=== PATIENT | male | born 1985 | race Two or more races ===

== ENCOUNTER 2020-03-28 19:33 | Emergency (ER) | payer OTHER, SELFPAY ==
[2020-03-28 20:24] VITALS: BP 109/55; PULSE 60; RESP 18; TEMP 36.2; O2SAT 98; BMI 26.1
[2020-03-28 20:42] VITALS: BP 116/73; PULSE 56; RESP 17; TEMP 37; O2SAT 98
[2020-03-28 20:44] LABS: Glucose Urine UA NEG (NEG); Leukocyte Esterase Urine NEG (NEG); Nitrite Urine NEG (NEG); Specific Gravity - Urine >= 1.030 (1.005-1.025); Urine Blood NEG (NEG); Urine Ketones NEG (NEG); Urine Protein NEG (NEG-TRACE)
[2020-03-28 20:48] LABS: Color Urine YELLOW
[2020-03-28 20:49] LABS: Appearance Urine CLEAR
--- NOTE | 2020-03-28 21:31 | ED.MALEGU ---
HPI - Male Genitourinary General Chief complaint: Urogenital-Male Stated complaint: ?STD Time Seen by Provider: 03/28/20 21:27 Source: patient Mode of arrival: ambulatory Limitations: no limitations History of Present Illness HPI Narrative: patient had unprotected sex with his partner 1 week ago who later told him that she has chlamydia patient denied any penile discharge notice slight dysuria since yesterday. Patient denied any history of STDs in the past Related Data Allergies Allergy/AdvReac Type Severity Reaction Status Date / Time No Known Allergies Allergy Unverified 01/21/20 17:40 Review of Systems Review of Systems: Yes all other systems are reviewed and are negative [facility] Past Medical History Medical History Healthy adult Social History Social History Smoked in Last 30 Days: No Use of substances other than those prescribed or required for medical reasons: No Advance Directives: No Physical Exam Vital Signs: Vital Signs: Last Vital Signs Temp 98.6 F 03/28/20 20:42 Pulse 56 03/28/20 20:42 Resp 17 03/28/20 20:42 BP 116/73 03/28/20 20:42 Pulse Ox 98 03/28/20 20:42 Body Mass Index 26.1 Appearance: Alert. Oriented X3. No acute distress. Eyes: Pupils equal, round and reactive to light. ENT: Pharynx normal. Neck: Normal inspection. Neck supple. CVS: Normal heart rate and rhythm. Pulses normal. Respiratory: No respiratory distress. Breath sounds normal. Abdomen: Soft and nontender. no CVA tenderness Skin: Skin warm and dry. Normal skin color. Normal skin turgor. Extremities: No lower extremity edema. Good range of movement Neuro: Oriented X 3. No motor deficit. No sensory deficit. MDM - Male Genitourinary MDM Narrative Medical decision making narrative: patient exposed to chlamydia UA is negative result for GC and chlamydia pending received Rocephin and Zithromax educated about STDs and precaution will discharge him home Lab Data Labs: Lab Results 03/28/20 Range/Units 20:32 Urine Color YELLOW Urine Appearance CLEAR Urine pH 6.0 (5.0-8.0) Ur Specific [place] >= 1.030 H (1.005-1.025) Urine Protein NEG (NEG-TRACE) MG/DL Urine Glucose (UA) NEG (NEG) MG/DL Urine Ketones NEG (NEG) MG/DL Urine Blood NEG (NEG) Urine Nitrite NEG (NEG) Ur Leukocyte Esterase NEG (NEG) Discharge Plan Discharge Clinical Impression: Exposure to sexually transmitted disease (STD) Patient Disposition: Home, Self-Care Instructions: Sexually Transmitted Diseases in Adolescents (ED) Additional Instructions: use protection when having sex. You have been treated for chlamydia gonorrhea in the ER let your partner know about it , your labs are pending for final diagnosis Interventions: ED Discharge Assessment Last Done: 03/28/20 22:11 Discharge Date/Time: 03/28/20 22:11
[2020-03-28] MEDS: Azithromycin 500 MG TABLET 1000 MG PO (22:05)
[2020-03-28] MEDS: cefTRIAXone sodium 250 MG, Lidocaine HCl 1 % MPF 0.9 ML IM (22:06)
[2020-03-29 04:24] LABS: CT PCR NOT DETECTED (Not Detect.); NG PCR NOT DETECTED (Not Detect.)
== END 2020-03-28 22:11 | disposition home or self-care (01) ==
PROVIDERS: Emergency Provider Internal Medicine
DX: Z20.2 Contact with and (suspected) exposure to infections with a predominantly sexual mode of transmission (principal)
CPT/HCPCS: 81003; 87491; 87591; 96372; 99284; J0696

== ENCOUNTER 2022-11-09 12:40 | Emergency (ER) | payer SELFPAY ==
--- NOTE | 2022-11-09 12:49 | ED.GENADULT ---
HPI - General Adult General Chief complaint: Skin/Abscess/Foreign Body Stated complaint: R arm injury Time Seen by Provider: 11/09/22 13:05 Source: patient Mode of arrival: ambulatory Limitations: no limitations History of Present Illness HPI narrative: Patient is a 37 year old male with no past medical history. Patient reports getting a laceration on the posterior aspect of his right arm on Father's day and it is still not healing and is hurting. Patient reports being up to date on tetanus shot. Patient denies taking antibiotics for this. Patient is not a diabetic. Denies fevers, chills, numbness, tingling, chest pain, SOB, vision changes, headache, nausea, and vomiting. Related Data Previous Rx's Medication Instructions Recorded cephalexin 500 mg tablet 500 mg PO Q6H 10 days #40 tabs 11/09/22 Allergies Allergy/AdvReac Type Severity Reaction Status Date / Time No Known Allergies Allergy Unverified 01/21/20 17:40 Review of Systems Review of Systems: Constitutional : No Fever, No Chills, Cardiovascular : No Chest Pain, No SOB Respiratory : No Dyspnea Gastrointestinal : No abdominal pain Musculoskeletal : No Joint Swelling Skin : No rash, positive skin laceration Neuro : No Weakness, No Numbness Psych : No SI/HI Yes all other systems are reviewed and are negative [facility] Past Medical History Attestation statement: The following information was validated with the patient. Source: old records reviewed and nursing notes reviewed Medical History Healthy adult Social History Social History Advance Directives: No Advance Directives Information Provided: No Physical Exam ED Vital Signs: Vital Signs - 24 hr 11/09/22 12:50 Temperature 97.0 F Pulse Rate 62 Respiratory Rate 20 Blood Pressure 127/53 L Pulse Oximetry 97 Oxygen Delivery Method Room Air BMI result Body Mass Index 26.7 VSS Appearance: Alert.? Oriented X3.? No acute distress.? Head: Normocephalic, atraumatic, no step-offs or deformities Eyes: Pupils equal, round and reactive to light.? Neck: Normal inspection.? Neck supple.? CVS: Normal heart rate and rhythm.? Pulses normal.? Respiratory: No respiratory distress.? Breath sounds normal.? Abdomen: Soft and nontender.? Skin: Skin warm and dry.? Normal skin color.? Normal skin turgor.?+laceration to right bicep Extremities: No lower extremity edema.? No calf ttp. 5/5 strength to bilateral upper and lower extremities Neuro: Oriented X 3.? No motor deficit.? No sensory deficit. CN 2-12 intact Course Course Course Narrative: This is an RME: Additional HPI, ROS, PE not included below will be deferred to primary provider. Patient is a 37 year old male with no past medical history presenting with right arm pain following a non healing cut from plastic he got on Father's Day from trying to fix his car. Plan: discharge with antibiotics Reevaluation(s) Reevaluation #1: Patient to be discharged home with keflex, advised to return if new or worsening symptoms. Patient verbally demonstarted understanding. Time: 13:01 Medical Decision Making Medical Decision Making MDM Narrative: Patient presents with poor healing laceration to right bicep. Physical exam: please refer to pictures in PE Differential likely poor wound healing, simple laceration, no signs of poor wound healing. No loss of sensation, no NV compromise, no compromised limb, no osteomyelitis. Plan: discharge home with antibiotics Differential Diagnosis Differential Diagnoses: The differential diagnosis associated with the presentation includes Differential likely poor wound healing, simple laceration, no signs of poor wound healing. No loss of sensation, no NV compromise, no compromised limb, no osteomyelitis. Admission/Observation Consideration of admission/observation: Escalation of care including admission/observation considered not indicated Prescription Management I considered prescription management with: Antibiotic Core Measures AMI core measures followed: Yes Measure exclusions: not indicated Discharge Plan Discharge Clinical Impression: Delayed wound healing Patient Disposition: Home, Self-Care Additional Instructions: Take your medications as prescribed. If you were prescribed antibiotics today, it is important that you take your medication to their entirety, do not skip any doses, do not finish them early. Follow-up with your primary care provider this week. Return to the emergency department with new or worsening symptoms. In case of emergency call 911 Prescriptions: New cephalexin 500 mg tablet 500 mg PO Q6H 10 Days Qty: 40 0RF Referrals: Physician,Aknita J [Primary Care Provider] - 2 days
[2022-11-09 12:50] VITALS: BP 127/53; PULSE 62; RESP 20; TEMP 36.1; O2SAT 97; BMI 26.7
== END 2022-11-09 13:09 | disposition home or self-care (01) ==
PROVIDERS: Emergency Provider Emergency Medicine Emergency Medical Services
DX: M79.601 Pain in right arm (principal); Z48.00 Encounter for change or removal of nonsurgical wound dressing
CPT/HCPCS: 99282; 99283

== ENCOUNTER 2023-08-28 15:39 | Emergency (ER) | payer MEDICAID, SELFPAY ==
--- NOTE | 2023-08-28 15:44 | ED_ITS ---
HPI - General Adult General Chief complaint: Allergic Reaction Stated complaint: allergies Time Seen by Provider: 08/28/23 17:57 Source: patient Mode of arrival: ambulatory Limitations: no limitations History of Present Illness HPI narrative: Patient is a 38 year old assigned male at with a history of seasonal allergies presenting to the emergency department today with bilateral lower eye lid swelling and a rash to the torso. Patient states that over the last 2 days he has noticed bilateral lower eye lid swelling and has a rash on his torso that is dry and itchy. Patient states that he has been taking claritin but not consistently. Patient denies any dizziness, lightheadedness, abdominal pain, nausea, vomiting, fever, chills, blurry vision, double vision, loss of vision, chest pain, difficulty breathing, shortness of breath, back pain, night sweats, pain with urination, increased urinary frequency, increased urinary urgency, blood in his urine or stool, syncope or a near syncopal episode, recent trauma or falls, bowel incontinence, bladder incontinence, bowel retention, bladder retention, or any other complaints at this time. Onset (ago): day(s) (2) Severity: mild Severity scale (1-10): 2 Relieving factors: none Exacerbating factors: none Associated symptoms: rash Treatments prior to arrival: other (intermittent Claritin use) Related Data Previous Rx's ?Medication ?Instructions ?Recorded cephalexin 500 mg tablet 500 mg PO Q6H 10 days #40 tabs 11/09/22 loratadine 10 mg tablet 10 mg PO DAILY #30 tabs 08/28/23 prednisone 20 mg tablet 20 mg PO DAILY 7 days #7 tabs 08/28/23 Allergies Allergy/AdvReac Type Severity Reaction Status Date / Time No Known Allergies Allergy Verified 08/28/23 15:47 Review of Systems Constitutional: Constitutional: Reports no additional constitutional complaints, Denies chills, Denies fever(s) and Denies night sweats Eyes: Eyes: Reports no additional eye complaints, Denies blurry vision, Denies change in vision, Denies diplopia, Denies eye discharge, Denies loss of vision and Denies eye pain Comments: bilateral lower lid swelling ENT: Denies dizziness Cardiovascular: Cardiovascular: Reports no additional cardiovascular complaints, Denies chest pain, Denies lightheadedness, Denies Loss of C onsciousness and Denies dyspnea Respiratory: Respiratory: Reports no additional respiratory complaints and Denies dyspnea Gastrointestinal: Gastrointestinal: Reports no additional gastrointestinal complaints, Denies abdominal pain, Denies melena, Denies hematochezia, Denies change in bowel habits and Denies change in stool character Genitourinary: Genitourinary: Reports no additional male genitourinary complaints, Denies hematuria, Denies oliguria, Denies difficulty urinating, Denies dysuria, Denies urinary frequency, Denies urinary hesitancy, Denies urinary incontinence and Denies urinary urgency Musculoskeletal: Musculoskeletal: Reports no additional musculoskeletal complaints, Denies numbness and Denies tingling Integumentary/Breasts: Skin/Breast: Reports rash Neurologic: Denies dizziness, Denies loss of vision, Denies numbness and Denies tingling Psychiatric: Psychiatric: Reports no additional psychiatric complaints Endocrine: Endocrine: Reports no additional endocrine complaints Hematologic/Lymphatic: Hematologic/Lymphatic: Reports no additional hematologic/lymphatic complaints Allergic/Immunologic: Allergic/Immunologic: Reports no additional allergic/immunologic complaints PMFSH Past Medical History Attestation statement: The following information was validated with the patient. Source: old records reviewed and nursing notes reviewed Medical History Healthy adult Social History Social History Advance Directives: No Advance Directives Information Provided: No Do you have a plan to hurt others: No Plan Physical Exam ED Vital Signs: Vital Signs - 24 hr 08/28/23 15:46 08/28/23 18:01 08/28/23 18:12 Temperature 98.9 F 98.5 F 98.5 F Pulse Rate 94 88 88 Respiratory Rate 20 20 20 Blood Pressure 141/88 H 140/86 H 140/86 H Pulse Oximetry 99 99 99 Oxygen Delivery Method Room Air Room Air Room Air BMI result Body Mass Index 27.9 Const General: cooperative, no acute distress, alert and awake Nutritional Appearance: well nourished Orientation/consciousness: patient oriented x3 Limitations: no limitations HENMT Head: Yes normal to inspection and Yes atraumatic Ears: hearing grossly normal bilaterally and external ears normal General nose exam: Normal external nose present, no nasal discharge noted and no epistaxis Face and sinus: Yes normal facial exam, No abrasion and No laceration Mouth: Normal oral and palatal mucosa present, no drooling and no muffled voice Eyes Eyelids: Yes other (bilateral lower eyelid swelling - consistent with seasonal allergies) Conjunctivae: conjunctivae normal Pupils: Equal, round and reactive pupils present EOM: EOMs intact bilaterally Neck Neck: Yes normal visual inspection, Yes full ROM and Yes no lymphadenopathy Chest Other: area of dry skin present to the torso - consistent with eczema Resp Effort & Inspection: normal respiratory effort and able to speak in complete sentences GI Inspection: Yes normal to inspection Neuro General: patient oriented x3 and moves all extremities Cranial nerves: Yes Equal, round and reactive pupils present Cognition (Neuro): normal cognition Motor exam (neuro): 5/5 motor strength present throughout Sensory Exam: Normal double simultaneous stimulation for sensation Coordination: [id number] test normal Extrem General: Yes normal to inspection, Yes full ROM and Yes capillary refill normal Psych Appearance: grossly normal Mental Status: mental status grossly normal Affect: normal affect Attitude: cooperative Thought process: Normal thought process present Thought content: Normal thought content present Insight: Good insight present (Psych) Course Course Course Narrative: This is an RME: Additional HPI, ROS, PE not included below will be deferred to primary provider. 38 yo m presents with itching rash on right torso X 3 days. Denies cough, fevers, cp, sob, nausea, vomiting, diarrhea. Denies recent sickness. Medical Decision Making Medical Decision Making [facility] Narrative: Patient is a 38 year old assigned male at with a history of seasonal allergies presenting to the emergency department today with bilateral lower eye lid swelling and a rash to his torso. Patient's physical exam was as noted in the physical exam portion of this note. Patient's COVID-19, influenza, and RSV tests were negative. I explained my physical exam findings as well as all test results to the patient. I answered all questions asked by the patient. I stressed the importance of the patient taking his medication as prescribed. I stressed the importance of the patient following up with his primary care provider. I stressed the importance of the patient returning to the emergency de partment immediately if his symptoms were to worsen or if he were to develop any dizziness, shortness of breath, difficulty breathing, chest pain, blurry vision, loss of vision, nausea, vomiting, abdominal pain, fever, chills, back pain, or any other complaints. Patient verbalized agreement and understanding with this treatment plan and discharge. Differential Diagnosis Differential Diagnoses: The differential diagnosis associated with the presentation includes Seasonal allergies Eczema Allergy triad Admission/Observation Consideration of admission/observation: Escalation of care including admission/observation considered Patient would have been admitted to the hospital had his work up had any findings where hospital admission was appropriate and his clinical presentation warranted hospital admission. Lab Data MDM Lab Attestation statement: I reviewed the patient's lab results. My interpretation of these studies and their corresponding values is that they are grossly normal. Labs: Lab Results 08/28/23 Range/Units 16:06 Influenza Type A (PCR) NEGATIVE (Negative) Influenza Type B (PCR) NEGATIVE (Negative) RSV RNA Qual (PCR) NEGATIVE (Negative) SARS-CoV-2 RNA (RT-PCR) NEGATIVE (Negative) Discharge Plan Discharge Clinical Impression: Eczema, Seasonal allergies Patient Disposition: Home, Self-Care Instructions: Eczema (ED), Allergies (ED) Additional Instructions: Follow up with a primary care provider. Return to the emergency department immediately if your symptoms worsen or if you develop any dizziness, shortness of breath, difficulty breathing, chest pain, blurry vision, loss of vision, nausea, vomiting, abdominal pain, fever, chills, back pain, or any other complaints. Prescriptions: New loratadine 10 mg tablet 10 mg PO DAILY Qty: 30 0RF prednisone 20 mg tablet 20 mg PO DAILY 7 Days Qty: 7 0RF No Action cephalexin 500 mg tablet 500 mg PO Q6H 10 Days Qty: 40 0RF Referrals: [facility] [Provider Group] (Call to establish and follow up with a primary care provider.) [facility] Primary CareJennifer [Provider Group] [facility] Primary [facility] [Provider Group] Stand Alone Forms: Work/School Release Interventions: ED Discharge Assessment Last Done: 08/28/23 18:12 Discharge Date/Time: 08/28/23 18:13 Print Language: Norwegian
[2023-08-28 15:46] VITALS: BP 141/88; PULSE 94; RESP 20; TEMP 37.2; O2SAT 99; BMI 27.9
[2023-08-28 16:52] LABS: Influenza A PCR NEGATIVE (Negative); Influenza B PCR NEGATIVE (Negative); Resp Syncy Virus RNA Qual PCR NEGATIVE (Negative); SARS COV2 PCR INHOUSE NEGATIVE (Negative)
[2023-08-28 18:01] VITALS: BP 140/86; PULSE 88; RESP 20; TEMP 36.9; O2SAT 99
[2023-08-28 18:12] VITALS: BP 140/86; PULSE 88; RESP 20; TEMP 36.9; O2SAT 99
== END 2023-08-28 18:13 | disposition home or self-care (01) ==
PROVIDERS: Physician Assistant; Emergency Provider Emergency Medicine
DX: L30.9 Dermatitis, unspecified (principal); J30.2 Other seasonal allergic rhinitis
CPT/HCPCS: 0241U; 99282; 99283

== ENCOUNTER 2024-12-28 14:51 | Outpatient (REF) | payer MEDICAID, SELFPAY ==
--- OUTSIDE RECORDS SUMMARY | 2024-12-28 14:40 | XMS_ITS | Encounter Summary ---
Author Organization [employer] Address [address] [facility] 7[address] [place] [address] Care Team Providers Care Creative Recruiter Name Role Phone Cindy Siegel SALES PROMOTION DIRECTOR Primary Care Provider [phone] Reason for Visit * Reason Comments Leg Pain Encounter Details Date Type Department Care Team ([facility] st Contact Info) Description 12/28/2024 2:40 PM EDT Office Visit [facility] [address] [place] [address] Dahlia Mead MD [address] [place] [address] Bug bite with infection, initial encounter (Primary Dx); Tingling sensation Social History Tobacco Use Types Packs/Day Years Used Date Smoking Tobacco: Never Smokeless Tobacco: Never Alcohol Use Standard Drinks/Week Comments Yes 0 (1 standard drink = 0.6 oz pur e alcohol) socially Depression Answer Date Recorded Patient Health Questionnaire-9 Score 2 05/13/2024 Patient Health Questionnaire-9 Score 2 05/13/2024 Last PHQ-9: Questionnaire Data Not on file 0 05/13/2024 Housing Stability Answer Date Recorded What is your housing situation today? I have housing today, but I am worried about losing housing in the future 05/13/[address] you li ve. Do you have problems with any of the following? I am not sure 05/13/2024 Food Insecurity Answer Date Recorded Within the past 12 months, y ou worried that your food would run out before you got money to buy more: Often true 05/13/2024 Within the past 12 months,th e food you bought just didn't last and you didn't have enough money to get more: Often true 12/2024 Transportation Answer Date Recorded In the past 12 months, has l ack of transportation kept you from medical appts, meetings, work or from getting things needed for daily living? No 05/13/2024 Utilities Answer Date Recorded In the past 12 months, has t he electric, gas, oil or water company threatened to shut off services in your home? I am not sure 05/13/2024 Depression Answer Date Recorded Patient Health Questionnaire-2 Score 2 05/13/2024 Internet Access Answer Date Recorded Internet Access Q1 Yes 05/13/2024 Internet Access Q2 Not on file 05/13/2024 Sex and Gender Information Value Date Recorded Sex Assigned at Male 03/05/2022 10:20 AM EDT Legal Sex Male 10:20 AM EDT Gender Identity Male 03/05/2022 10:20 AM EDT Sexual Orientation Straight 03/05/2022 10 :20 AM EDT documented as of this encounter Last Filed Vital Signs Vital Sign Reading Time Taken Comments Blood Pressure 124/68 12/28/2024 2:35 PM EDT Pulse 60 12/28/2024 2:35 PM EDT Temperature - - Respiratory Rate 16 12/28/2024 2:35 PM EDT Oxygen Saturation - - Inhaled Oxygen Concentration - - Weight 80.3 kg (177 lb) 12/28/2024 2:35 PM EDT Height 175.3 cm (5' 9 ) 12/28/2024 2:35 PM EDT Body Mass Index 26.14 12/28/2024 2:35 PM EDT documented in this encounter Progress Notes * Dahlia Rowell MD - 12/28/2024 2:40 PM EDT Images from the original note were not included. SUBJECTIVE: Acute visit Humbreto Anderson is a 39 y.o. year old male who presents for . 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 He also has being feelingtingling sensation on his legs and he thinks the area got infected, denies fever, nausea, vomiting,he does reports some fatigue Social History Social History Narrative Not on file Problem List[1] COVID-19 History of alcohol abuse Weight loss Well adult on routine health check Vision changes Seborrheic dermatitis of scalp Family history of colon cancer Dietary counseling Exercise counseling Overweight Bug bite with infection Tingling sensation Family History[2] Review of Systems Constitutional: Positive for fatigue. Negative for activity change, appetite change, chills, diaphoresis, fever and unexpected weight change. HENT: Negative. Respiratory: Negative. Cardiovascular: Negative. Skin: Bug bites infected wound R lower extremity Neurological: Negative for dizziness, tremors, seizures, syncope, facial asymmetry, speech difficulty, weakness, light-headedness and headaches. Tingling sensation of legs OBJECTIVE: Vitals: 12/28/24 1435 BP: 124/68 BP Location: Left arm Patient Position: Sitting BP Cuff Size: Adult Pulse: 60 Resp: 16 Weight: 177 lb (80.3 kg) Height: 5' 9 (1.753 m) Physical Exam Constitutional: Appearance: Normal appearance. Cardiovascular: Rate and Rhythm: Normal rate and regular rhythm. Pulmonary: Effort: Pulmonary effort is normal. Breath sounds: Normal breath sounds. Abdominal: General: Abdomen is flat. Palpations: Abdomen is soft. Musculoskeletal: Right lower leg: No edema. Left lower leg: No edema. Legs: Comments: 2 bite wounds with swelling and warm sensation sourrounding Neurological: Mental Status: He is alert. Follow Up: No follow-ups on file. Medications Ordered Prior to Encounter[3] Problem List Items Addressed This Visit Bug bite with infection - Primary Relevant Medications amoxicillin (Amoxil) 500 MG tablet doxycycline (Vibra-Tabs) 100 MG tablet Other Relevant Orders Lyme Disease Ab with Reflex to Blot (IgG, IgM) Tingling sensation Labs ordered he will be contacted with results Relevant Orders Lyme Disease Ab with Reflex to Blot (IgG, IgM) Vitamin B12/Folate, Serum Panel RPR (Monitor) with Reflex to Titer Hemoglobin A1c Basic Metabolic Panel CBC auto differential [1] Patient Active Problem List Diagnosis COVID-19 History of alcohol abuse Weight loss Well adult on routine health check Vision changes Seborrheic dermatitis of scalp Family history of colon cancer Dietary counseling Exercise counseling Overweight Bug bite with infection Tingling sensation [2] Family History Problem Relation Name Age of Onset Asthma Sister Colon cancer Father's Brother in his 40's from colon CA [3] Current Outpatient Medications on File Prior to Visit Medication Sig Dispense Refill ketoconazole (NIZOral) 2 % shampoo Apply topically 2 (two) times a week. 120 mL 1 loratadine (Claritin) 10 MG tablet TAKE 1 TABLET BY MOUTH EVERY DAY 90 tablet 3 triamcinolone (Kenalog) 0.1 % ointment Apply topically 2 times daily. 30 g 1 No current facility-administered medications on file prior to visit. documented in this encounter Miscellaneous Notes * Assessment & Plan Note - Dahlia Rowell MD - 12/28/2024 3:21 PM EDT Associated Problem(s): Tingling sensation Labs ordered he will be contacted with results documented in this encounter Plan of Treatment Upcoming Encounters Date Type Department Care Team (Late st Contact Info) Description 12/31/2024 3:30 PM EDT Office Visit [facility] [address], [place] [phone] Cindy Siegel FNP [address] [place] [address] Scheduled Orders Name Type Priority Associated Diagnoses Orde r Schedule Lyme Disease Ab with Reflex to Blot (IgG, IgM) Lab Routine Bug bite with infection, initial encounter Tingling sensation Expected: 12/28/2024, Expires: 12/28/2025 Vitamin B12/Folate, Serum Panel Lab Routine Tingling sensation Expected: 12/28/2024, Expires: 12/28/2025 RPR (Monitor) with Reflex to Titer Lab Routine Tingling sensation Expected: 12/28/2024, Expires: 12/28/2025 Basic Metabolic Panel Lab Routine Tingling sensation Expected: 12/28/2024 (Approximate), Expires: 12/28/2025 documented as of this encounter Procedures Procedure Name Priority Date/Time Associated Diagnosis Comments CBC WITH AUTO DIFFERENTIAL Routine 12/28/2024 3:00 PM EDT Tingling sensation HEMOGLOBIN A1C Routine 12/28/2024 3:00 PM EDT Tingling sensation documented in this encounter Results * (ABNORMAL) CBC auto differential (12/28/2024 3:00 PM EDT) White Blood Count 6.7 4.8 - 10.8 X10*3/uL [facility] Red Blood Count 5.14 4.60 - 5.80 X10*6/uL [facility] Hemoglobin 15.1 14.0 - 18.0 g/dl [facility] Hematocrit 44.5 42.0 - 52.0 % [facility] Mean Corpuscular Volume 86.6 80.0 - 98.0 fL [facility] Mean Corpuscular Hemoglobin 29.4 27.0 - 33.0 pg [facility] Mean Corpuscular HGB Conc 33.9 31.0 - 36.0 g/dl [facility] Red Cell Distribution Width 12.8 11.0 - 16.0 % [facility] Platelet Count 206 160 - 400 X10*3/uL [facility] Mean Platelet Volume 11.4 9.4 - 12.4 fL [facility] Neutrophils Percent Auto 60.9 45 - 73 % [facility] Imm Gran Pct Auto 0.1 0.0 - 0.4 % [facility] Lymphocytes Percent Auto 29.8 20 - 40 % [facility] Monocytes Percent Auto 4.3 2 - 11 % [facility] Eosinophils Percent Auto 4.3(H) 0 - 4 % [facility] Basophils Percent Auto 0.6 0 - 2 % [facility] NRBC Pct Auto 0.0 0.0 - 0.2 /100WBC [facility] Neutrophils Absolute Auto 4.1 2.0 - 8.3 x10*3/uL [facility] Imm Gran Abs Auto 0.01 0.00 - 0.03 X10*3/uL [facility] Lymphocytes Absolute Auto 2.0 1.2 - 4.9 X10*3/uL [facility] Monocytes Absolute Auto 0.3 0.1 - 1.2 X10*3/uL [facility] Eosinophils Absolute Auto 0.3 0.0 - 0.4 X10*3/uL [facility] Basophils Absolute Auto 0.0 0.0 - 0.2 X10*3/uL [facility] NRBC Abs Auto 0.000 0.0 - 0.012 X10*3/uL [facility] Blood Venous blood specimen / Unknown 12/28/2024 3:00 PM EDT 12/28/2024 4:05 PM EDT us Dahlia Rowell MD LAB BLOOD ORDERABLES Final Result Performing Organization Address [facility] Co de Phone Number [facility] [address] [place] [phone] * Hemoglobin A1c (12/28/2024 3:00 PM EDT) Hemoglobin A1c 5.6 <6.0 % [facility] Comment:Hemoglobin A1C Refer ence Range Adults: 4.8 - 6.0 % Non diabetic: < 6.0 % Goal: < 7.0 %Additional Action Suggested: > 8.0 %Note: Hemoglobin A1c results are invalid for patients with abnormal amounts of HbF. Blood transfusions may impact the HbA1c concentration in the patient sample. Estimated Average Glucose 114 mg/dL [facility] Comment:eAG = Estimated ave rage glucose which is %A1C expressed asaverage glucose, using the formula of the A4X-LnxipweWawrwow Glucose study (ADAG), Diabetes Care, Vol.31,#8,Dec. 2007 Blood Venous blood specimen / Unknown 12/28/2024 3:00 PM EDT 12/28/2024 4:05 PM EDT us Dahlia Rowell MD LAB BLOOD ORDERABLES Final Result Performing Organization Address [facility] Co de Phone Number [facility] [address] [place] [phone] documented in this encounter Visit Diagnoses Diagnosis Bug bite with infection, initial encounter- Primary Tingling sensation Disturbance of skin sensation documented in this encounter Additional Health Concerns Assessment Noted Time PHQ-9 Depression Total Score: 2 05/13/19 2:28 PM EST documented as of this encounter Care Teams Creative Recruiter Relationship Specialty Start Date End Date Cindy Siegel FNP [address] [place] [address] PCP - General Family Medicine 05/13/24 documented as of this encounter
[2024-12-28 16:14] LABS: MANUAL DIFF FLAG NO
[2024-12-28 16:15] LABS: Hematocrit 44.5 % (42.0-52.0); Hemoglobin 15.1 g/dl (14.0-18.0); Imm Gran Abs Auto 0.01 X10*3/uL (0.00-0.03); Imm Gran Pct Auto 0.1 % (0.0-0.4); Lymphocytes Absolute Auto 2.0 X10*3/uL (1.2-4.9); Mean Corpuscular HGB Conc 33.9 g/dl (31.0-36.0); Mean Corpuscular Hemoglobin 29.4 pg (27.0-33.0); Mean Corpuscular Volume 86.6 fL (80.0-98.0); NRBC Abs Auto 0.000 X10*3/uL (0.0-0.012); NRBC Pct Auto 0.0 /100WBC (0.0-0.2); Platelet Count 206 X10*3/uL (160-400); Red Blood Count 5.14 X10*6/uL (4.60-5.80); White Blood Count 6.7 X10*3/uL (4.8-10.8)
[2024-12-28 16:25] LABS: Hemoglobin A1C 147.8648 umol/L; Total Hemoglobin (HGBA1C) 3899.8301 umol/L
[2024-12-28 16:28] LABS: Anion Gap 14 (12-20); Blood Urea Nitrogen 13 mg/dL (9-16); Calcium 9.8 mg/dL (8.4-10.2); Carbon Dioxide 25 mmol/L (22-29); Chloride 103 mmol/L (96-108); Estimated Glomerular Filt Rate > 60; Potassium 3.8 mmol/L (3.3-5.1); Sodium 138 mmol/L (135-145)
--- OUTSIDE RECORDS SUMMARY | 2024-12-28 16:32 | XMS_ITS | Clinical Summary ---
Author Organization [facility] Address [address] [place] [phone] Care Team Providers Care Manager Distribution Center Name Role Phone Jeradl Jo Primary Care Provider [phone] Allergies No known active allergies Medications triamcinolone (KENALOG) 0.025 % creamIndications :Dermatitis APPLY TO THE RASH 3-4 TIMES A DAY NEEDED 30 g 1 11/16/2019 Active Active Problems Problem Noted Date Diagnosed Date History of alcohol abuse 08/17/2020 COVID-19 08/17/2020 Weight loss 08/17/2020 Resolved Problems Problem Noted Date Diagnosed Date Resolved Date Chronic fatigue 08/17/2020 08/17/2020 Family History Relation Status Comments Father Alive Mother Alive Social History Tobacco Use Types Packs/Day Years Used Date Smoking Tobacco: Never Smokeless Tobacco: Never Alcohol Use Standard Drinks/Week Comments Yes 12 (1 standard drink = 0.6 oz pu re alcohol) drinks about 2-3 times a week AUDIT-C Answer Date Recorded Q1: How often do you have a drink containing alc ohol? 2-3 times a week 08/17/2020 Average Number of Drinks Not on file 021 Frequency of Binge Drinking Not on file 08/04 PHQ-2 Answer Date Recorded Depression Risk (PHQ2) Score 0 Sex and Gender Information Value Date Recorded Sex Assigned at Not on file Legal Sex Male 7:13 AM MST Gender Identity Not on file Sexual Orientation Not on file Last Filed Vital Signs Vital Sign Reading Time Taken Comments Blood Pressure 104/68 08/17/2020 9:16 AM EDT Pulse 58 08/17/2020 9:16 AM EDT Temperature 36.6 C (97.8 F) 08/17/2020 9:16 AM EDT Respiratory Rate 18 04/14/2020 4:57 PM EST Oxygen Saturation 100% 08/17/2020 9:16 AM EDT Inhaled Oxygen Concentration - - Weight 70.4 kg (155 lb 3.2 oz) 08/17/2020 9:16 A M EDT Height 175.3 cm (5' 9 ) 08/17/2020 10:10 AM EDT Body Mass Index 22.92 08/17/2020 9:16 AM EDT Plan of Treatment Health Maintenance Due Date Last Done Comments Hepatitis C Screening 1987 PHQ-9 Depression Screen 1999 Annual Preventive Exam 2005 Complete Annual HRA 2005 NOLBERTO-7 Anxiety Screen 2005 DTaP,Tdap,and Td Vaccines (1 - Tdap) 2006 COVID-19 Vaccine ( - 2023- season) 2024 Influenza Vaccine (#1) 2025 RSV Vaccine (SCDM) (1 - 1-dose 75+ series) 2062 Insurance [employer] Care Teams Manager Distribution Center Relationship Specialty Start Date End Date Jerald Jo PA [address] [place] [address] PCP - General Family Medicine 07/20/19
--- OUTSIDE RECORDS SUMMARY | 2024-12-28 16:32 | XMS_ITS | Clinical Summary ---
Author Organization [employer] Address [address] [facility] [address] [place] [address] Care Team Providers Care Five Roll Refiner Batch Mixer Name Role Phone Cindy Siegel JACKAROO Primary Care Provider [phone] Allergies No known active allergies Medications ketoconazole (NIZOral) 2 % shampooIndicati ons:Seborrheic dermatitis of scalp Apply topically 2 (two) times a week. 120 mL 1 5 Active loratadine (Claritin) 10 MG tablet TAKE 1 TABLET BY MOUTH EVERY DAY 90 tablet 3 5 Active triamcinolone (Kenalog) 0.1 % ointmentIndicat ions:Atopic dermatitis in adult Apply topically 2 times daily. 30 g 1 5 Active amoxicillin (Amoxil) 500 MG tabletIndicatio ns:Bug bite with infection, initial encounter Take 1 tablet (500 mg) by mouth 3 times daily for 5 days. 15 tablet 5 01/03/20 25 Active doxycycline (Vibra-Tabs) 100 MG tabletIndicatio ns:Bug bite with infection, initial encounter Take 1 tablet (100 mg) by mouth 2 times daily for 14 days. Take with a full glass of water and do not lie down for at least 30 minutes after. 28 tablet 5 01/12/20 25 Active Active Problems Problem Noted Date Diagnosed Date Bug bite with infection 12/28/2024 Tingling sensation 12/28/2024 Assessment & Plan (12/28/2024 3:21 PM EDT): Labs ordered he will be contacted with results Well adult on routine health check 05/17/2024 Vision changes 05/17/2024 Seborrheic dermatitis of scalp 05/17/2024 Family history of colon cancer 05/17/2024 Dietary counseling 05/17/2024 Exercise counseling 05/17/2024 Overweight 05/17/2024 COVID-19 08/17/2020 History of alcohol abuse 08/17/2020 Weight loss 08/17/2020 Encounters Date Type Department Care Team Description 12/28/2024 2:40 PM EDT Office Visit [facility] [address] [place] [phone] Dahlia Mead MD Bug bite with infection, initial encounter (Primary Dx); Tingling sensation 12/28/2024 Travel 11/12/2024 3:15 PM EDT Office Visit [facility] [address] [place] [phone] Cindy Siegel FNP Atopic dermatitis in adult (Primary Dx) 11/12/2024 Travel 11/04/[address] [facility] [address] [place] [phone] Cindy Siegel FNP New Med Request from Last 3 Months Family History Medical History Relation Name Comments Colon cancer Father's Brother in his 40's from colon CA Asthma Sister Relation Name Status Comments Father's Brother Sister Social History Tobacco Use Types Packs/Day Years Used Date Smoking Tobacco: Never Smokeless Tobacco: Never Tobacco Cessation:Counseling Given: Not Answered Alcohol Use Standard Drinks/Week Comments Yes 0 [...] Orientation Straight 03/05/2022 10 :20 AM EDT Last Filed Vital Signs Vital Sign Reading Time Taken Comments Blood Pressure 124/68 12/28/2024 2:35 PM EDT Pulse 60 12/28/2024 2:35 PM EDT Temperature 35.6 C (96 F) 11/12/2024 3:29 PM EDT Respiratory Rate 16 12/28/2024 2:35 PM EDT Oxygen Saturation 97% 11/12/2024 3:29 PM EDT Inhaled Oxygen Concentration - - Weight 80.3 kg (177 lb) 12/28/2024 2:35 PM EDT Height 175.3 cm (5' 9 ) 12/28/2024 2:35 PM EDT Body Mass Index 26.14 12/28/2024 2:35 PM EDT Plan of Treatment Upcoming Encounters Date Type Department Care Team (Late st Contact Info) Description 12/31/2024 3:30 PM EDT Office Visit [facility] [address] [place] [address] Cindy Siegel FNP [address] [place] [address] Health Maintenance Due Date Last Done Comments HIV Screening 1987 Lipid Panel 1987 Family Planning (PISQ) 2002 HPV Vaccines (1 - Male 3-dos e series) 2002 Hepatitis C Screening 2005 DTaP/Tdap/Td Vaccines (1 - Tdap) 2006 Hepatitis B Vaccines (1 of 3 - 19+ 3-dose series) 2006 COVID-19 Vaccine (3 - 2023-2 5 season) 2024 05/11/2021, 04/13/2021 Influenza Vaccine (#1) 2025 Depression Screening 05/13/2025 05/13/2024, 05/13/2024 SDOH Screening 05/13/2025 05/13/2024 Alcohol/Substance Use Screening 11/12/2025 11/12/2024 Disability Screening 11/12/2025 11/12/2024 Tobacco Screening 11/12/2025 11/12/2024 Zoster Vaccines (1 of 2) 2037 RSV Patients and Patients Aged 60 years or older (1 - 1-dose 75+ series) 2062 HIB Vaccines Aged Out No longer eligi ble based on patient's age to complete this topic Hepatitis A Vaccines Aged Out No long er eligible based on patient's age to complete this topic IPV Vaccines Aged Out No longer eligi ble based on patient's age to complete this topic Meningococcal B Vaccine Aged Out No l onger eligible based on patient's age to complete this topic Meningococcal Vaccine Aged Out No bill alexandr eligible based on patient's age to complete this topic Pneumococcal Vaccine: Pediatrics (0 to 5 Years) and At-Risk Patients (6 to 49) Years Aged Out No longer eligible b ased on patient's age to complete this topic RSV under 20 months Aged Out No longe r eligible based on patient's age to complete this topic Rotavirus Vaccines Aged Out No longer eligible based on patient's age to complete this topic Procedures Procedure Name Priority Date/Time Associated Diagnosis Comments CBC WITH AUTO DIFFERENTIAL Routine 12/28/2024 3:00 PM EDT Tingling sensation HEMOGLOBIN A1C Routine 12/28/2024 3:00 PM EDT Tingling sensation BASIC METABOLIC PANEL Routine 12/28/2024 3:00 PM EDT Well adult on routine health check from Last 3 Months Results * (ABNORMAL) CBC auto differential (12/28/2024 3:00 PM EDT) White Blood Count 6.7 4.8 - 10.8 X10*3/uL [facility] Red Blood Count 5.14 4.60 - 5.80 X10*6/uL [facility] Hemoglobin 15.1 14.0 - 18.0 g/dl [facility] Hematocrit 44.5 42.0 - 52.0 % [facility] Mean Corpuscular Volume 86.6 80.0 - 98.0 fL [facility] Mean Corpuscular Hemoglobin 29.4 27.0 - 33.0 pg [facility] Mean Corpuscular HGB Conc 33.9 31.0 - 36.0 g/dl [facility] Red Cell Distribution Width 12.8 11.0 - 16.0 % [facility] Platelet Count 206 160 - 400 X10*3/uL [facility] Mean Platelet Volume 11.4 9.4 - 12.4 fL [facility] Neutrophils Percent Auto 60.9 45 - 73 % [facility] Imm Gran Pct Auto 0.1 0.0 - 0.4 % [facility] Lymphocytes Percent Auto 29.8 20 - 40 % [facility] Monocytes Percent Auto 4.3 2 - 11 % [facility] Eosinophils Percent Auto 4.3(H) 0 - 4 % [facility] Basophils Percent Auto 0.6 0 - 2 % [facility] NRBC Pct Auto 0.0 0.0 - 0.2 /100WBC [facility] Neutrophils Absolute Auto 4.1 2.0 - 8.3 x10*3/uL [facility] Imm Gran Abs Auto 0.01 0.00 - 0.03 X10*3/uL [facility] Lymphocytes Absolute Auto 2.0 1.2 - 4.9 X10*3/uL [facility] Monocytes Absolute Auto 0.3 0.1 - 1.2 X10*3/uL [facility] Eosinophils Absolute Auto 0.3 0.0 - 0.4 X10*3/uL [facility] Basophils Absolute Auto 0.0 0.0 - 0.2 X10*3/uL [facility] NRBC Abs Auto 0.000 0.0 - 0.012 X10*3/uL [facility] Blood Venous blood specimen / Unknown 12/28/2024 3:00 PM EDT 12/28/2024 4:05 PM EDT Dahlia Rowell MD LAB BLOOD ORDERABLES Final Result Performing Organization Address [facility] Co de Phone Number [facility] [address] [place] [phone] * Hemoglobin A1c (12/28/2024 3:00 PM EDT) Hemoglobin A1c 5.6 <6.0 % [facility] Comment:Hemoglobin A1C Refer ence Range Adults: 4.8 - 6.0 % Non diabetic: < 6.0 % Goal: < 7.0 %Additional Action Suggested: > 8.0 %Note: Hemoglobin A1c results are invalid for patients with abnormal amounts of HbF. Blood transfusions may impact the HbA1c concentration in the patient sample. Estimated Average Glucose 114 mg/dL [facility] Comment:eAG = Estimated ave rage glucose which is %A1C expressed asaverage glucose, using the formula of the S8B-WcqchtoCpdxlcl Glucose study (ADAG), Diabetes Care, Vol.31,#8,Dec. 2007 Blood Venous blood specimen / Unknown 12/28/2024 3:00 PM EDT 12/28/2024 4:05 PM EDT us Dahlia Rowell MD LAB BLOOD ORDERABLES Final Result Performing Organization Address [facility] Co de Phone Number [facility] [address] [place] [phone] * Basic Metabolic Panel (12/28/2024 3:00 PM EDT) Sodium 138 135 - 145 mmol/L [facility] Potassium 3.8 3.3 - 5.1 mmol/L [facility] Chloride 103 96 - 108 mmol/L [facility] Carbon Dioxide 25 22 - 29 mmol/L [facility] Anion Gap 14 12 - 20 [facility] Urea Nitrogen (BUN) 13 9 - 16 mg/dL [facility] Creatinine, Serum 1.12 0.5 - 1.4 mg/dL [facility] Estimated Glomerular Filt Rate >60 [facility] Comment:Chronic Kidney Disea se: Estimated GFR < 60 mL/min/[id number] Kidney Disease: Estimated GFR < 15 mL/min/1.73m2 Glucose 72 60 - 115 mg/dL [facility] Calcium 9.8 8.4 - 10.2 mg/dL [facility] Blood Venous blood specimen / Unknown 12/28/2024 3:00 PM EDT 12/28/2024 4:05 PM EDT us Cindy Siegel JACKAROO LAB BLOOD ORDERABLES Final Res ult [facility] [address] [place] [phone] from Last 3 Months Insurance [employer] Care Teams Five Roll Refiner Batch Mixer Relationship Specialty Start Date End Date Cindy Siegel FNP [address] [place] [phone] PCP - General Family Medicine 05/13/24
--- OUTSIDE RECORDS SUMMARY | 2024-12-28 16:32 | XMS_ITS | Clinical Summary ---
Author Organization [employer] [facility] ity Address [address] [place] [address] Care Team Providers Care Arrt Technologist Name Role Phone Unavailable Primary Care Provider Unavailabl e Social History Tobacco Use Types Packs/Day Years Used Date Smoking Tobacco: Never Assessed Sex and Gender Information Value Date Recorded Sex Assigned at Not on file Legal Sex Male 9:07 PM EST Gender Identity Not on file Sexual Orientation Not on file Plan of Treatment Health Maintenance Due Date Last Done Comments DTaP,Tdap,and Td Vaccines (1 - Tdap) 2006 Hepatitis B Vaccines (1 of 3 - 19+ 3-dose series) 2006 Cholesterol Screening (Lipid Panel) 05/31/2023 HIV Screening 05/31/2023 Hepatitis C Screening 05/31/2023 Social Influencers of Health Screening 05/31/2023 COVID-19 Vaccine ( - 2023-2 5 season) 2024 Depression Screening 05/06/2024 Influenza Vaccine (#1) 2025 HIB Vaccines Aged Out No longer eligi ble based on patient's age to complete this topic HPV Vaccines Aged Out No longer eligi ble based on patient's age to complete this topic Hepatitis A Vaccines Aged Out No long er eligible based on patient's age to complete this topic IPV Vaccines Aged Out No longer eligi ble based on patient's age to complete this topic MMR Vaccines Aged Out No longer eligi ble based on patient's age to complete this topic Meningococcal ACWY Vaccine Aged Out N o longer eligible based on patient's age to complete this topic Meningococcal B Vaccine Aged Out No l onger eligible based on patient's age to complete this topic Pneumococcal Vaccine: Pediat rics (0 to 5 Years) and At-Risk Patients (6 to 49 Years) Aged Out No longer eligible b ased on patient's age to complete this topic RSV Immunization Patients Un jaime 20 months Aged Out No longer eligible b ased on patient's age to complete this topic Varicella Vaccines Aged Out No longer eligible based on patient's age to complete this topic
--- OUTSIDE RECORDS SUMMARY | 2024-12-28 16:32 | XMS_ITS | Encounter Summary ---
Author Organization [employer] Address [address] [place] [address] Care Team Providers Care Marketing Area Manager Name Role Phone Cindy Siegel [employer] DETECTIVE Primary Care Provider [phone] Encounter Details Date Type Department Care Team (Latest Contact Info) Description 12/28/2024 Travel Social History Tobacco Use Types Packs/Day Years [...] AM EDT documented as of this encounter Plan of Treatment Upcoming Encounters Date Type Department Care Team (Late st Contact Info) Description 12/31/2024 3:30 PM EDT Office Visit [facility] [address] [place] [address] Cindy Siegel FNP [address] [place] [address] documented as of this encounter Visit Diagnoses Not on filedocumented in this encounter Additional Health Concerns Assessment Noted Time PHQ-9 Depression Total Score: 2 05/13/19 2:28 PM EST documented as of this encounter Care Teams Marketing Area Manager Relationship Specialty Start Date End Date Cindy Siegel FNP [address] [place] [address] PCP - General Family Medicine 05/13/24 documented as of this encounter
--- OUTSIDE RECORDS SUMMARY | 2024-12-28 16:32 | XMS_ITS | Encounter Summary ---
Author Organization [facility] [facility] Address [address] [place] [address] [address] [place] [address] Care Team Providers Care Top Distribution Executive Name Role Phone Cindy Siegel Primary Care Provider [phone] Encounter Details Date Type Department Care Team (Latest Contact Info) Description 10/30/2018 Abstract [facility] CONVERSIONS Dental, Provider, DDS Social History Tobacco Use Types Packs/Day Years [...] Upcoming Encounters Date Type Department Care Team ( st Contact Info) Description 12/31/2024 3:30 PM EDT Office Visit [facility] [address] [place] [address] Cindy Siegel FNP [address] [place] [address] documented as of this encounter Visit Diagnoses Not on filedocumented in this encounter Care Teams Top Distribution Executive Relationship Specialty Start Date End Date Cindy Siegel FNP [address] [place] [address] PCP - General Family Medicine 05/13/24 documented as of this encounter
--- OUTSIDE RECORDS SUMMARY | 2024-12-28 16:33 | XMS_ITS | Patient Health Record ---
Author Organization [facility] Address [address] [place], [place] [id number] Care Team Providers Care Campus Rep Name Role Phone [facility] Primary Care Provider Saundra Bradshaw Unavailable Reason For Referral No Information Social History Sex Assigned At : Social History Observation Description Sex Assigned At Male Encounters Encounter Location Date Provider Diagnosis [facility] [address], [place] [phone] 08/04/2024 Saundra Bradshaw [facility] [address], [place] [phone] 07/27/2024 Saundra Bradshaw Plan Of Treatment No Information Insurance Providers Payer Name Payer Address Payer Phone Subscriber Number Group Number Insured Name Patient Relationship to Insured Coverage Start Date Coverage End Date [place] Medicaid Standard [id number] [place] [phone] Humberto Anderson Self - patient is the insured
[2024-12-28 16:34] LABS: Anion Gap 14 (12-20); Blood Urea Nitrogen 13 mg/dL (9-16); Calcium 9.5 mg/dL (8.4-10.2); Carbon Dioxide 24 mmol/L (22-29); Chloride 103 mmol/L (96-108); Cholesterol 243 mg/dL (<200); Estimated Glomerular Filt Rate > 60; HDL Cholesterol 60 mg/dL (>40); Potassium 4.0 mmol/L (3.3-5.1); Sodium 137 mmol/L (135-145); Triglycerides 69 mg/dL (<150)
[2024-12-28 17:03] LABS: Folate 10.8 ng/mL (> or = 4.0); Vitamin B12 762 pg/mL (200-900)
[2024-12-29 04:24] LABS: HBS Num1 > 1000.00 mIU/mL (0-7.99); HBc Num1 0.42 S/CO (0.00-0.79); HBsAGNum1 0.36 S/CO (0.00-0.99); HIV Num 1 0.08 S/CO (0.00-0.99); Hepatitis B Surface Antigen Negative (Negative); ~HepC Num1 0.15 S/CO (0.00-0.79); ~Hepatitis B Surface Antibody REACTIVE (Nonreactive); ~Hepatitis C Antibody Nonreactive (Nonreactive)
[2024-12-29 10:04] LABS: Lyme Abs Screen <0.90 index
== END 2024-12-28 14:52 | disposition home or self-care (01) ==
LOC: HO.HHCL 14:51
PROVIDERS: Nurse Practitioner Family; PCP Internal Medicine; Visit Provider Internal Medicine
DX: Z00.00 Encounter for general adult medical examination without abnormal findings (principal); Z11.59 Encounter for screening for other viral diseases; Z11.3 Encounter for screening for infections with a predominantly sexual mode of transmission; Z11.4 Encounter for screening for human immunodeficiency virus [HIV]; R20.2 Paresthesia of skin; W57.XXXA Bitten or stung by nonvenomous insect and other nonvenomous arthropods, initial encounter
CPT/HCPCS: 36415; 80048; 80061; 82607; 82746; 83036; 85025; 86592; 86617; 86618; 86704; 86706; 86803; 87340; 87389